=== PATIENT | male | born 1980 | race Caucasian/White ===

== ENCOUNTER 2016-12-18 19:05 | Emergency (ER) | payer SELFPAY ==
--- NOTE | 2016-12-18 20:57 | Cat Scan Report ---
FINAL REPORT PROCEDURE: CT HEAD/BRAIN WO CON TECHNIQUE: Computerized tomography of the head was performed without contrast material. HISTORY: neuro deficits \T\lt; 6hrs or sx present upon awakening COMPARISON: No prior studies are available for comparison. FINDINGS: There is diffuse extensive bilateral subarachnoid hemorrhage present, extending into the left occipital horn and 4th ventricle. There is no severe hydrocephalus. Temporal horns may be mildly prominent, but no prior studies are available for comparison. No parenchymal hemorrhage identified. Calvarium is intact. Mucosal retention cyst or polyp in the left maxillary sinus. IMPRESSION: Extensive diffuse subarachnoid hemorrhage, with small amount of intraventricular hemorrhage. Possible mild prominence of the temporal horns, of uncertain chronicity. Recommend follow-up Findings were discussed with Dr. Carey by telephone at 7:48 p.m. central standard time on 12/18/2016.
[2016-12-18] MEDS ORDERED: ZOFRAN IV ONE (20:58)
[2016-12-18] MEDS ORDERED: DILAUDID IV ONE (20:58)
[2016-12-18] MEDS ORDERED: CARDENE 50 MG in NACL 0.9% 250ML 230 ML IV SCH (21:00)
[2016-12-18 21:12] LABS: Basophils % (Auto) 0.3 % (0.0-1.8); Eosinophils % (Auto) 0.1 % (0.0-4.3); Hematocrit 43.7 % (35.5-45.6); Hemoglobin 14.6 gm/dl (11.8-15.2); Mean Corpuscular HGB Conc 34 % (32-34); Mean Corpuscular Hemoglobin 30 pg (28-32); Mean Corpuscular Volume 89 fl (84-94); Platelet Count 201 K/mm3 (140-440); Red Blood Count 4.89 M/mm3 (3.65-5.03); Red Cell Distribution Width 13.6 % (13.2-15.2)
--- NOTE | 2016-12-18 21:16 | Emergency Department Report ---
ED Headache HPI - General Chief Complaint: Headache Stated Complaint: HEADACHE Time Seen by Provider: 12/18/16 20:38 Source: patient Exam Limitations: no limitations, language barrier (nauruan speaking) - History of Present Illness Initial Comments: 36-year-old male with a past medical history of daily alcohol ingestion presents to the hospital with acute headache. Onset headache at 5 PM. Described as a "swelling in his head". Pain is constant rated moderate to severe in intensity. No aggravating or alleviating factors reported. Pain worse at the top and back of her head. Denies neck or rigidity. Positive associated nausea or vomiting. No blurred vision, focal weakness, or numbness. Denies head injury or trauma. Although patient drinks beer daily he denies history of alcohol withdrawal tremors or seizures. Patient does not take anticoagulation including [id number]-cmhuftl aspirin. Allergies/Adverse Reactions: Allergies No Known Allergies Allergy (Verified 12/18/16 20:55) ED Review of Systems ROS: Stated complaint: HEADACHE Other details as noted in HPI Comment: All other systems reviewed and negative Other: Constitutional: No fevers chills Eyes: No eye pain visual changes ENT: No ear pain or throat pain Neck: Denies pain Respiratory: Denies cough wheezing shortness of breath Cardiovascular: Denies chest pain, palpitations, syncope GI: Denies abdominal pain Musculoskeletal: Denies back pain Skin: Denies rash, lesions, erythema Neurologic: as per hpi ED Past Medical Hx - Past Medical History Previous Medical History?: No - Surgical History Past Surgical History?: Yes Additional Surgical History: hernia repair - Social History Smoking Status: Never Smoker Substance Use Type: Alcohol ED Physical Exam - General Limitations: Language Barrier - Other Other exam information: General: No limitations, patient is alert in no acute distress Head exam: Atraumatic, normocephalic Eyes exam: Normal appearance, pupils equal reactive to light, extraocular movements intact. ENT: Moist mucous membrane, normal oropharynx Neck exam: Normal inspection, full range of motion, posterior neck pain with flexion however no nuchal rigidity or meningismus Respiratory exam: Clear to auscultation bilateral, no wheezes, rales, crackles Cardiovascular: Normal rate and rhythm, normal heart sounds Abdomen: Soft, nondistended, and nontender, with normal bowel sounds, no rebound, or guarding Extremity: Full range of motion normal inspection no deformity Back: Normal Inspection, full range of motion, no tenderness Neurologic: Alert, oriented x3, cranial nerves intact, no motor or sensory deficit. GCS equals 15 Psychiatric: normal affect, normal mood Skin: Warm, dry, intact ED Course Vital Signs 12/18/16 12/18/16 20:21 21:30 Temperature 99.3 F Pulse Rate 86 Respiratory 18 18 Rate Blood Pressure 200/135 O2 Sat by Pulse 98 Oximetry - Consultations Consultation #1: 12/18/16 21:19 Dr Morrell Neurosurgeon has accepted the pt to [facility] 12/18/16 21:27 Dr Wagner neuro biomedical specialist has accepted pt to the ICU. rec amicar bolus, keppra, agree with goal sbp 150-160's. ED Medical Decision Making - Lab Data Result diagrams: 12/18/16 20:46 12/18/16 20:46 Lab Results 12/18/16 12/18/16 12/18/16 Range/Units 20:46 20:46 20:46 WBC 17.0 H (4.5-11.0) K/mm3 RBC 4.89 (3.65-5.03) M/mm3 Hgb 14.6 (11.8-15.2) gm/dl Hct 43.7 (35.5-45.6) % MCV 89 (84-94) fl MCH 30 (28-32) pg MCHC 34 (32-34) % RDW 13.6 (13.2-15.2) % Plt Count 201 (140-440) K/mm3 Lymph % (Auto) 9.3 L (13.4-35.0) % Eddy % (Auto) 5.5 (0.0-7.3) % Eos % (Auto) 0.1 (0.0-4.3) % Baso % (Auto) 0.3 (0.0-1.8) % Lymph # 1.6 (1.2-5.4) K/mm3 Eddy # 0.9 H (0.0-0.8) K/mm3 Eos # 0.0 (0.0-0.4) K/mm3 Baso # 0.0 (0.0-0.1) K/mm3 Seg Neutrophils % 84.8 H (40.0-70.0) % Seg Neutrophils # 14.4 H (1.8-7.7) K/mm3 PT 12.7 (12.2-14.9) Sec. INR 0.91 (0.87-1.13) APTT 25.3 (24.2-36.6) Sec. Thrombin Time (15.1-19.6) Sec. Sodium 141 (137-145) mmol/L Potassium 3.9 (3.6-5.0) mmol/L Chloride 102.3 (98-107) mmol/L Carbon Dioxide 22 (22-30) mmol/L Anion Gap 21 mmol/L BUN 13 (9-20) mg/dL Creatinine 0.9 (0.8-1.5) mg/dL Estimated GFR > 60 ml/min BUN/Creatinine Ratio 14.44 % Glucose 157 H (75-100) mg/dL Calcium 9.4 (8.4-10.2) mg/dL Magnesium (1.7-2.3) mg/dL Total Bilirubin (0.1-1.2) mg/dL Direct Bilirubin (0-0.2) mg/dL Indirect Bilirubin mg/dL AST (5-40) units/L ALT (7-56) units/L Alkaline Phosphatase (35-129) units/L Troponin T < 0.010 (0.00-0.029) ng/mL Total Protein (6.3-8.2) g/dL Albumin (3.9-5) g/dL Albumin/Globulin Ratio % Plasma/Serum Alcohol (0-0.07) gm% 12/18/16 12/18/16 12/18/16 Range/Units 20:46 20:46 21:00 WBC (4.5-11.0) K/mm3 RBC (3.65-5.03) M/mm3 Hgb (11.8-15.2) gm/dl Hct (35.5-45.6) % MCV (84-94) fl MCH (28-32) pg MCHC (32-34) % RDW (13.2-15.2) % Plt Count (140-440) K/mm3 Lymph % (Auto) (13.4-35.0) % Eddy % (Auto) (0.0-7.3) % Eos % (Auto) (0.0-4.3) % Baso % (Auto) (0.0-1.8) % Lymph # (1.2-5.4) K/mm3 Eddy # (0.0-0.8) K/mm3 Eos # (0.0-0.4) K/mm3 Baso # (0.0-0.1) K/mm3 Seg Neutrophils % (40.0-70.0) % Seg Neutrophils # (1.8-7.7) K/mm3 PT (12.2-14.9) Sec. INR (0.87-1.13) APTT (24.2-36.6) Sec. Thrombin Time 16.9 (15.1-19.6) Sec. Sodium (137-145) mmol/L Potassium (3.6-5.0) mmol/L Chloride (98-107) mmol/L Carbon Dioxide (22-30) mmol/L Anion Gap mmol/L BUN (9-20) mg/dL Creatinine (0.8-1.5) mg/dL Estimated GFR ml/min BUN/Creatinine Ratio % Glucose (75-100) mg/dL Calcium (8.4-10.2) mg/dL Magnesium 1.90 (1.7-2.3) mg/dL Total Bilirubin 0.50 (0.1-1.2) mg/dL Direct Bilirubin < 0.2 (0-0.2) mg/dL Indirect Bilirubin 0.3 mg/dL AST 42 H (5-40) units/L ALT 74 H (7-56) units/L Alkaline Phosphatase 122 (35-129) units/L Troponin T (0.00-0.029) ng/mL Total Protein 7.9 (6.3-8.2) g/dL Albumin 4.6 (3.9-5) g/dL Albumin/Globulin Ratio 1.4 % Plasma/Serum Alcohol < 0.01 (0-0.07) gm% - EKG Data -: EKG Interpreted by Me (nsr rsinus arrhythmia) - EKG Data When compared to previous EKG there are: previous EKG unavailable - Radiology Data Radiology results: report reviewed (CT head: Extensive diffuse subarachnoid hemorrhage. Small amount of intraventricular hemorrhage. No severe hydrocephalus. Temporal horns may be mildly prominent.) - Medical Decision Making Acute SAH GCS 15 Meds initiated cardene drip, amicar 5 g bolus, keppra 1 gram load, zofran 4mg, Dilaudid 0.5mg requires transfer since no neurosurger accepted by [facility] neuro ICU Discussed with neurologist an substation engineer neuro biomedical specialist Patient be transferred by air - Differential Diagnosis intracranial hemorrhage, subarachnoid, migraine, subdural Critical Care Time: No Critical care attestation.: If time is entered above; I have spent that time in minutes in the direct care of this critically ill patient, excluding procedure time. ED Disposition Clinical Impression: Subarachnoid hemorrhage, Hypertensive emergency, Alcohol abuse Disposition: [id number]/TX-[id number] ANOTHER TYPE HLTHCARE Is pt being admited?: No Condition: Stable Time of Disposition: 21:44 (transfer to [facility] [place] neuro ICU, accepting MD Dr Morrell and Dr Wagner)
[2016-12-18 21:24] LABS: Anion Gap 21 mmol/L; BUN/Creatinine Ratio 14.44; Blood Urea Nitrogen 13 mg/dL (9-20); Calcium 9.4 mg/dL (8.4-10.2); Carbon Dioxide 22 mmol/L (22-30); Chloride 102.3 mmol/L (98-107); Glucose 157 mg/dL (75-100); Potassium 3.9 mmol/L (3.6-5.0); Sodium 141 mmol/L (137-145)
[2016-12-18 21:25] LABS: INR 0.91 (0.87-1.13)
[2016-12-18 21:26] LABS: Partial Thromboplastin Time 25.3 Sec. (24.2-36.6)
[2016-12-18 21:28] LABS: Alanine Aminotransferase 74 units/L (7-56); Albumin 4.6 g/dL (3.9-5); Albumin/Globulin Ratio 1.4 %; Alkaline Phosphatase 122 units/L (35-129); Total Protein 7.9 g/dL (6.3-8.2)
[2016-12-18] MEDS ORDERED: AMICAR 5,000 MG in NACL 0.9% 100 ML IV ONE (21:29)
[2016-12-18] MEDS ORDERED: KEPPRA 1,000 MG/NS 0.75% 100ML 1,000 MG/100 ML BAG IV ONE (21:29)
[2016-12-18 21:33] LABS: Bilirubin,Direct < 0.2 mg/dL (0-0.2); Bilirubin,Indirect 0.3 mg/dL
[2016-12-18 22:11] VITALS: BP 180/117
== END 2016-12-18 22:25 | disposition other institution (70) ==
LOC: EDBD 19:05 → ED 19:05
DX: I60.8 Other nontraumatic subarachnoid hemorrhage (principal); I16.0 Hypertensive urgency; F10.10 Alcohol abuse, uncomplicated
CPT/HCPCS: 36415; 70450; 80048; 80074; 83735; 84484; 85025; 85610; 85670; 85730; 86850; 86900; 86901; 93005; 93010; 96365; 96368; 96375; 99285; G0480; J1170; J1953; J2405; J7050; 80320; 82962